=== PATIENT | female | born 1950 | race Asian ===

== ENCOUNTER 2023-09-29 12:28 | Inpatient (IN) | payer MEDICAID, MEDICARE, OTHER ==
[~2023-09-29] VITALS: Ht 152.4 cm; Wt 47.7 kg
[2023-09-29 13:15] LABS: BASOPHILS # (AUTO) 0.1 K/UL (0.0-0.2); BASOPHILS % (AUTO) 1.7 % (0.0-2.0); EOSINOPHILS % (AUTO) 0.6 % (0.0-7.0); HEMATOCRIT 38.6 % (31.2-41.9); HEMOGLOBIN 12.9 g/dL (10.9-14.3); LYMPHOCYTES # (AUTO) 1.1 K/uL (0.8-4.8); LYMPHOCYTES % (AUTO) 16.3 % (20.5-51.5); MEAN CORPUSCULAR HEMOGLOBIN 30.4 uug (24.7-32.8); MEAN CORPUSCULAR HGB CONC 33 g/dL (32.3-35.6); MONOCYTES # (AUTO) 0.3 K/uL (0.1-1.30); MONOCYTES % (AUTO) 3.9 % (0.0-11.0); NEUTROPHILS % (AUTO) 77.5 % (38.5-71.5); PLATELET COUNT (AUTO) 287 K/uL (179-408); RED BLOOD CELL COUNT(AUTO) 4.24 MIL/uL (3.63-4.92); WHITE BLOOD COUNT (AUTO) 6.5 K/uL (3.8-11.8)
[2023-09-29 13:16] LABS: DIFFERENTIAL COMMENT 1
[2023-09-29 13:40] LABS: ALANINE AMINOTRANSFERASE 22 U/L (14-59); ALBUMIN 3.7 g/dL (3.4-5.0); ALKALINE PHOSPHATASE 89 U/L (50-136); ASPARTATE AMINOTRANSFERASE 20 U/L (15-37); BILIRUBIN,TOTAL 0.4 mg/dL (0.2-1.0); CALCIUM 8.7 mg/dL (8.5-10.1); CARBON DIOXIDE 31 mmol/L (21-32); CHLORIDE 101 mmol/L (98-107); CREATININE 0.7 mg/dL (0.6-1.3); GLUCOSE 168 mg/dL (74-106); NT-PRO BNP 255 pg/mL (0-125); POTASSIUM 3.9 mmol/L (3.5-5.1); SODIUM SERUM 138 mmol/L (136-145); TOTAL PROTEIN, SERUM 7.9 g/dL (6.4-8.2); UREA NITROGEN, BLOOD 19 mg/dL (7-18)
[2023-09-29] MEDS ORDERED: IV NS 1000 ML 1,000 ML IV ONE (14:30)
[2023-09-29] MEDS ORDERED: ONDANSETRON 4 MG/2 ML VIAL IV ONE (14:30)
[2023-09-29] MEDS ORDERED: ONDANSETRON 4 MG/2 ML VIAL ONE (14:54)
[2023-09-29 15:53] LABS: *BILIRUBIN,URIN NEGATIVE (NEGATIVE); *BLOOD, URINE NEGATIVE (NEGATIVE); *CLARITY,URINE CLEAR (CLEAR); *COLOR,URINE YELLOW (YELLOW); *KETONES,URINE NEGATIVE (NEGATIVE); *PROTEIN,URINE NEGATIVE (NEGATIVE); *UROBILINOGEN,URINE 0.2 E.U./dl (NORMAL); LEUKOCYTE ESTERASE ,URINE NEGATIVE (NEGATIVE); NITRITE, URINE NEGATIVE (NEGATIVE); UGLUCOSE NEGATIVE (NEGATIVE)
[2023-09-29] MEDS ORDERED: INSULIN REGULAR, HUMAN 300 UNIT/3 ML VIAL SQ PRN (18:00)
[2023-09-29] MEDS ORDERED: DEXTROSE 50% 50 ML DISP.SYRIN IV PRN ×2 (18:00→18:55)
[2023-09-29] MEDS ORDERED: MAGNESIUM HYDROXIDE 30 ML LIQUID UDC PO PRN ×2 (18:00→21:00)
[2023-09-29] MEDS ORDERED: REMEDY ESSENTIAL ZINC PASTE 113 GM TP PRN (18:00)
[2023-09-29] MEDS ORDERED: ACETAMINOPHEN 325 MG TABLET PO PRN (18:41)
[2023-09-29] MEDS ORDERED: ONDANSETRON 4 MG/2 ML VIAL IV PRN (18:49)
[2023-09-29] MEDS ORDERED: MECLIZINE HCL 25 MG TABLET PO PRN (18:49)
[2023-09-29 18:59] VITALS: BP 131/52; TEMP 97.6; O2SAT 96
[2023-09-29] MEDS ORDERED: METO25TA6 PO (20:10)
[2023-09-29] MEDS ORDERED: METF-440 PO (20:10)
[2023-09-29] MEDS ORDERED: DIPH25CA83 PO (20:10)
[2023-09-29] MEDS ORDERED: CYCL30DR EACHEYE (20:10)
[2023-09-29] MEDS ORDERED: diphenhydrAMINE 25 MG CAP PO PRN (20:30)
[2023-09-29] MEDS: IV NS 1000 ML 1,000 ML IV PRN (20:45)
[2023-09-29] MEDS: BLOOD SUGAR DIAGNOSTIC 1 EACH STRIP VI SCH (20:58)
[2023-09-29] MEDS ORDERED: TEMAZEPAM 15 MG CAPSULE PO PRN (21:00)
[2023-09-30 00:21] VITALS: BP 131/52; TEMP 97.8; O2SAT 96
[2023-09-30 00:30] VITALS: BP 142/57; TEMP 97.4; O2SAT 97
[2023-09-30 04:10] VITALS: BP 156/49; TEMP 97.8; O2SAT 98
[2023-09-30] MEDS: PANTOPRAZOLE SODIUM 40 MG TABLET.DR PO SCH (06:08)
[2023-09-30] MEDS: BLOOD SUGAR DIAGNOSTIC 1 EACH STRIP VI SCH ×4 (06:38→21:03)
[2023-09-30 07:15] LABS: BASOPHILS % (AUTO) 0.7 % (0.0-2.0); EOSINOPHILS # (AUTO) 0.2 K/uL (0.0-0.7); HEMATOCRIT 35.3 % (31.2-41.9); HEMOGLOBIN 11.9 g/dL (10.9-14.3); LYMPHOCYTES # (AUTO) 1.8 K/uL (0.8-4.8); LYMPHOCYTES % (AUTO) 30.5 % (20.5-51.5); MEAN CORPUSCULAR HEMOGLOBIN 30.7 uug (24.7-32.8); MEAN CORPUSCULAR HGB CONC 34 g/dL (32.3-35.6); MEAN CORPUSCULAR VOLUME 90.7 fL (75.5-95.3); MONOCYTES # (AUTO) 0.5 K/uL (0.1-1.30); NEUTROPHILS # (AUTO) 3.4 K/uL (1.8-8.9); NEUTROPHILS % (AUTO) 57.8 % (38.5-71.5); PLATELET COUNT (AUTO) 274 K/uL (179-408); RED BLOOD CELL COUNT(AUTO) 3.89 MIL/uL (3.63-4.92); RED CELL DISTRIBUTION WIDTH 13.4 % (12.3-17.7); WHITE BLOOD COUNT (AUTO) 5.8 K/uL (3.8-11.8)
[2023-09-30 07:18] LABS: CALCIUM 8.2 mg/dL (8.5-10.1); CARBON DIOXIDE 25 mmol/L (21-32); CHLORIDE 107 mmol/L (98-107); CHOLESTEROL 191 mg/dL (<200); CREATININE 0.7 mg/dL (0.6-1.3); GLUCOSE 105 mg/dL (74-106); HDL CHOLESTEROL 48 mg/dL (40-60); PHOSPHOROUS 3.3 mg/dL (2.5-4.9); POTASSIUM 3.9 mmol/L (3.5-5.1); SODIUM SERUM 141 mmol/L (136-145); TRIGLYCERIDES 75 MG/DL (30-150); UREA NITROGEN, BLOOD 17 mg/dL (7-18)
[2023-09-30 07:28] LABS: DIFFERENTIAL COMMENT 1
[2023-09-30] MEDS: ASPIRIN 81 MG TAB.CHEW PO SCH (08:20)
[2023-09-30] MEDS ORDERED: IOHEXOL 350 100 ML INFUS..BTL ONE (08:53)
[2023-09-30] MEDS ORDERED: IV NORMAL SALINE 250 ML IV ONE (08:53)
[2023-09-30] MEDS ORDERED: SWABABLE VALVE TRANSFER SET EA MC ONE (08:53)
[2023-09-30 12:00] VITALS: BP 108/54; TEMP 97.6; O2SAT 97
[2023-09-30] MEDS: INSULIN REGULAR, HUMAN 300 UNIT/3 ML VIAL SQ PRN ×2 (12:09→20:58)
[2023-09-30 16:00] VITALS: BP 126/57; TEMP 98.1; O2SAT 98
[2023-09-30 20:25] VITALS: BP 142/50; TEMP 97.8; O2SAT 97
[2023-09-30] MEDS ORDERED: ATORVASTATIN 20 MG TABLET PO SCH (21:00)
[2023-09-30] MEDS: IV NS 1000 ML 1,000 ML IV PRN (21:12)
[2023-10-01] MEDS: PANTOPRAZOLE SODIUM 40 MG TABLET.DR PO SCH (06:01)
[2023-10-01 06:23] VITALS: BP 128/50; TEMP 97.3; O2SAT 93
[2023-10-01] MEDS: BLOOD SUGAR DIAGNOSTIC 1 EACH STRIP VI SCH ×2 (06:30→11:37)
[2023-10-01] MEDS: ASPIRIN 81 MG TAB.CHEW PO SCH (08:49)
[2023-10-01 09:39] VITALS: BP 118/60; TEMP 97.5; O2SAT 95
[2023-10-01 11:38] VITALS: BP 122/51; TEMP 98; O2SAT 97
[2023-10-01] MEDS: INSULIN REGULAR, HUMAN 300 UNIT/3 ML VIAL SQ PRN (12:12)
[2023-10-01 15:39] VITALS: BP 110/53; TEMP 97.9; O2SAT 94
== END 2023-10-01 16:15 | disposition home or self-care (01) | DRG 887 ==
LOC: ER 12:28 → TELE3 18:13 → MEDSURG3 09-30 10:10
PROVIDERS: ADMIT Nurse Practitioner Acute Care; ATTEND Nurse Practitioner Acute Care
DX: G47.00 Insomnia, unspecified (principal); E86.0 Dehydration; I10 Essential (primary) hypertension; E11.65 Type 2 diabetes mellitus with hyperglycemia; E78.5 Hyperlipidemia, unspecified; E11.9 Type 2 diabetes mellitus without complications; Z79.84 Long term (current) use of oral hypoglycemic drugs
CPT/HCPCS: 36415; 70450; 70496; 71045; 83605; 83735; 84100; 84484; 85025; 93307; A4606; A4663; G0378; J1815; J2405; J7040; Q0163; Q9967